=== PATIENT | male | born 1945 | race Two or more races ===

== ENCOUNTER 2016-09-03 19:13 | Inpatient (IN) | payer MEDICARE, MEDICAID ==
[~2016-09-03] VITALS: Ht 180.3 cm; Wt 83.9 kg
--- NOTE | 2016-09-03 19:13 | NUR ---
[facility] ER [facility]. PT ARRIVED ON 5150 GRAVELY DISABLED. NO IMMEDIATE SIGNS OF DISTRESS NOTED. PT AMBULATORY WITH STEADY GAIT. PT CALM AND COOPERATIVE UPON ARRIVAL. PT A/OX2 . PT TO ER BED.
[2016-09-03 19:48] LABS: BASOPHILS % (AUTO) 0.5 % (0.0-2.0); EOSINOPHILS # (AUTO) 0.2 /CMM (0.0-0.7); EOSINOPHILS % (AUTO) 3.7 % (0.0-6.0); HEMATOCRIT 46 % (39-51); HEMOGLOBIN 15.3 g/dL (13.5-17.5); LYMPHOCYTES # (AUTO) 1.8 /CMM (0.8-4.8); LYMPHOCYTES % (AUTO) 27.5 % (20.0-44.0); MEAN CORPUSCULAR HEMOGLOBIN 31 PG (26.0-33.0); MEAN CORPUSCULAR HGB CONC 33 g/dl (31.0-36.0); MEAN CORPUSCULAR VOLUME 91 fL (80-96); MONOCYTES # (AUTO) 0.7 /CMM (0.1-1.30); MONOCYTES % (AUTO) 10.9 % (2.0-12.0); NEUTROPHILS % (AUTO) 57.4 % (43.0-81.0); PLATELET COUNT (AUTO) 191 /CMM (150-450); RDW COEFFICIENT OF VARIATION 12.8 (11.5-15.0); RED BLOOD CELL COUNT(AUTO) 5.03 MIL/uL (4.5-6.0); WHITE BLOOD COUNT (AUTO) 6.7 K/uL (4.3-11.0)
[2016-09-03] MEDS ORDERED: CYAN10009 PO (19:57)
[2016-09-03] MEDS ORDERED: METO25TA6 PO (19:57)
[2016-09-03] MEDS ORDERED: THIA100T70 PO (19:57)
[2016-09-03] MEDS ORDERED: CHOL100034 PO (19:57)
[2016-09-03] MEDS ORDERED: MULT1TAB73 PO (19:57)
[2016-09-03 20:04] LABS: ALANINE AMINOTRANSFERASE 14 U/L (12-78); ALBUMIN 3.3 g/dL (3.4-5.0); ALKALINE PHOSPHATASE 82 U/L (46-116); ASPARTATE AMINOTRANSFERASE 21 U/L (15-37); BILIRUBIN,DIRECT 0.1 mg/dL (0.0-0.2); BILIRUBIN,TOTAL 0.4 mg/dL (0.2-1.0); CALCIUM, SERUM 8.6 mg/dL (8.5-10.1); CARBON DIOXIDE 26 mmol/L (21-32); CHLORIDE 105 mmol/L (98-107); CREATININE 1.3 mg/dL (0.6-1.3); GFR 55 mL/min (>60); GLUCOSE 104 mg/dL (74-106); POTASSIUM 4.6 mmol/L (3.5-5.1); SODIUM SERUM 139 mmol/L (136-145); UREA NITROGEN, BLOOD 20 mg/dL (7-18)
[2016-09-03 20:07] LABS: ACETAMINOPHEN < 2 ug/ml (10-30); ALCOHOL, BLOOD < 3 mg/dL (0-0); SALICYLATE < 2.8 mg/dL (2.8-20.0)
[2016-09-03] MEDS ORDERED: FAMO20TA8 PO (20:08)
[2016-09-03] MEDS ORDERED: ATOR20TA PO (20:08)
[2016-09-03] MEDS ORDERED: TRAZ-144 PO (20:08)
[2016-09-03] MEDS ORDERED: ACAM333T8 PO (20:08)
[2016-09-03] MEDS ORDERED: RISP0.2515 PO (20:08)
[2016-09-03] MEDS ORDERED: CITA10TA9 PO (20:08)
[2016-09-03] MEDS ORDERED: DONE10TA44 PO (20:08)
[2016-09-03] MEDS ORDERED: LISI2.5T2 PO (20:08)
[2016-09-03] MEDS ORDERED: FOLI1TAB16 PO (20:08)
[2016-09-03] MEDS ORDERED: LORA0.5T PO (20:08)
[2016-09-03] MEDS ORDERED: DIVA500T54 PO (20:08)
--- NOTE | 2016-09-03 20:23 | NUR ---
REPORT GIVEN TO SHAY ROSE FOR CONTINUATION OF CARE.
--- NOTE | 2016-09-03 20:51 | NUR ---
PT TO [facility]IA [facility].
--- NOTE | 2016-09-03 21:15 | NUR ---
ADMITTED NOTES THIS 70Y/O MALE ADMITTED FROM [facility] ER.INITIALLY CAME FROM [facility], PT. IS ON 5150 HOLD FOR GD PER HOLD ,PT VERBAL AGGRESSIVE ,AGITATED STRIKING OUT AT STAFF , UPON FACE TO FACE EVALUATION , PT IS A/0 X ,3, PT ANXIOUS AGGRESSIVE, SKIN ASSESSMENT DONE SKIN IS CLAER AND INTACT,PT. MENTAL HX OF PSYCHOSIS , MEDICAL HX OF HTN, HYPERLIPIDEMIA, GERD , CONTRABAND CHECK DONE, SAFE ENVIRONMENT PROVIDED , BOTH MD AWARE OF NEW ADMISSION AND MEDICATION, NEW ORDERS RECEIVED AND CARRIED OUT, CALLED FAMILY MEMBER UNABLE TO TALK TO FAMILY AND LEFT MESSAGE FOR FAMILY. PT. REORIENT TO UNIT AND ENCOURAGE PT TO BE VERBALIZE FEELING AND CONCERN TO STAFF, WILL CONTINUE TO MONITOR FOR SAFETY AND BEHAVIOR .
[2016-09-03] MEDS ORDERED: MAGNESIUM HYDROXIDE 30 ML UDC PO PRN (21:30)
[2016-09-03] MEDS ORDERED: LORAZEPAM 0.5 MG TABLET PO PRN (21:30)
[2016-09-03] MEDS ORDERED: MAG HYDROX/AL HYDROX/SIMETH 30 ML UDC PO PRN (21:30)
[2016-09-03] MEDS ORDERED: ACETAMINOPHEN 325 MG TABLET PO PRN (21:30)
[2016-09-03] MEDS ORDERED: LORAZEPAM 0.5 MG TABLET ONE (21:39)
[2016-09-03] MEDS ORDERED: ACETAMINOPHEN 325 MG TABLET ONE (21:40)
--- NOTE | 2016-09-03 22:04 | NUR ---
PT. C/O ANXIETY ATIVAN 0.5 MG PO PRN GIVEN PO WILL CONTINUE TO MONITOR
[2016-09-03] MEDS ORDERED: METOPROLOL TARTRATE 25 MG TABLET ONE (22:20)
[2016-09-03] MEDS: METOPROLOL TARTRATE 25 MG TABLET PO SCH (22:27)
[2016-09-03 23:55] VITALS: BP 140/85
[2016-09-04] MEDS ORDERED: DIVALPROEX SODIUM 500 MG TABLET.DR PO SCH ×2 (09:00)
[2016-09-04 09:30] LABS: CREATININE 1.2 mg/dL (0.6-1.3)
[2016-09-04] MEDS: FAMOTIDINE (20 MG) 20 MG TABLET PO SCH ×2 (10:45→18:07)
[2016-09-04] MEDS: MULTIVITAMINS,THERAPEUTIC 1 UDTAB TABLET PO SCH (10:45)
[2016-09-04] MEDS: ATORVASTATIN 10 MG TABLET PO SCH (10:45)
[2016-09-04] MEDS: THIAMINE HCL 100 MG TABLET PO SCH (10:45)
[2016-09-04] MEDS: CYANOCOBALAMIN 500 MCG TABLET PO SCH (10:45)
[2016-09-04] MEDS: METOPROLOL TARTRATE 25 MG TABLET PO SCH ×2 (10:46→21:36)
[2016-09-04] MEDS: CHOLECALCIFEROL 1,000 UNIT TABLET (VIT D3) PO SCH (10:47)
[2016-09-04] MEDS: LISINOPRIL (5MG) 5 MG TABLET PO SCH (10:47)
[2016-09-04] MEDS: FOLIC ACID 1 MG TABLET PO SCH (10:47)
--- NOTE | 2016-09-04 14:31 | NUR ---
Initial DC Plan: Patient resides at [facility] ([address] [place] [address] ). SW attempted to call [facility] several times but there was no answer and phone kept ringing. SW attempted to contact the patient's dtr Leydi Nicholson ([phone]) but was unsuccessful and left a message with contact information. SW will help form a safe and proper discharge.
[2016-09-04 17:31] VITALS: BP 149/81
[2016-09-04 17:32] VITALS: BP 126/70
[2016-09-04 20:08] VITALS: BP 165/85
--- NOTE | 2016-09-04 20:10 | NUR ---
GPS RN NOTE: NEW ORDER RECEIVED FROM DR. DEL CID OF DE[facility] 500MG [id number] NOTED AND CARRIED OUT.
[2016-09-04] MEDS: DONEPEZIL 5 MG TABLET PO SCH (21:35)
[2016-09-04] MEDS: DIVALPROEX SODIUM 500 MG TABLET.DR PO SCH (21:35)
[2016-09-04] MEDS: TEMAZEPAM 7.5 MG CAPSULE PO PRN (22:56)
[2016-09-05 07:29] LABS: BASOPHILS % (AUTO) 0.4 % (0.0-2.0); EOSINOPHILS # (AUTO) 0.2 /CMM (0.0-0.7); EOSINOPHILS % (AUTO) 3.6 % (0.0-6.0); HEMATOCRIT 47 % (39-51); HEMOGLOBIN 15.9 g/dL (13.5-17.5); LYMPHOCYTES # (AUTO) 1.6 /CMM (0.8-4.8); LYMPHOCYTES % (AUTO) 29.3 % (20.0-44.0); MEAN CORPUSCULAR HEMOGLOBIN 31 PG (26.0-33.0); MEAN CORPUSCULAR HGB CONC 34 g/dl (31.0-36.0); MEAN CORPUSCULAR VOLUME 90 fL (80-96); MONOCYTES # (AUTO) 0.5 /CMM (0.1-1.30); MONOCYTES % (AUTO) 9.2 % (2.0-12.0); NEUTROPHILS # (AUTO) 3.1 /CMM (1.8-8.9); NEUTROPHILS % (AUTO) 57.5 % (43.0-81.0); PLATELET COUNT (AUTO) 166 /CMM (150-450); RDW COEFFICIENT OF VARIATION 13.4 (11.5-15.0); RED BLOOD CELL COUNT(AUTO) 5.18 MIL/uL (4.5-6.0); WHITE BLOOD COUNT (AUTO) 5.3 K/uL (4.3-11.0)
[2016-09-05 07:51] LABS: ALBUMIN 3.3 g/dL (3.4-5.0); BILIRUBIN,TOTAL 0.5 mg/dL (0.2-1.0); CALCIUM, SERUM 8.7 mg/dL (8.5-10.1); CREATININE 1.1 mg/dL (0.6-1.3); POTASSIUM 4.2 mmol/L (3.5-5.1); TOTAL PROTEIN, SERUM 6.9 g/dL (6.4-8.2)
[2016-09-05 08:00] VITALS: BP 160/90
[2016-09-05] MEDS: CHOLECALCIFEROL 1,000 UNIT TABLET (VIT D3) PO SCH (08:09)
[2016-09-05] MEDS: MULTIVITAMINS,THERAPEUTIC 1 UDTAB TABLET PO SCH (08:09)
[2016-09-05] MEDS: FOLIC ACID 1 MG TABLET PO SCH (08:10)
[2016-09-05] MEDS: DIVALPROEX SODIUM 500 MG TABLET.DR PO SCH ×2 (08:10→20:09)
[2016-09-05] MEDS: THIAMINE HCL 100 MG TABLET PO SCH (08:10)
[2016-09-05] MEDS: ATORVASTATIN 10 MG TABLET PO SCH (08:10)
[2016-09-05] MEDS: FAMOTIDINE (20 MG) 20 MG TABLET PO SCH ×2 (08:10→16:29)
[2016-09-05] MEDS: METOPROLOL TARTRATE 25 MG TABLET PO SCH ×2 (08:11→20:23)
[2016-09-05] MEDS: LISINOPRIL (5MG) 5 MG TABLET PO SCH (08:11)
[2016-09-05] MEDS: CYANOCOBALAMIN 500 MCG TABLET PO SCH (08:14)
[2016-09-05 11:05] LABS: THYROID STIMULATING HORMONE 2.761 uIU/mL (0.358-3.74)
--- NOTE | 2016-09-05 14:57 | NUR ---
SW spoke with Merary from [facility] ([address] [place] [address] ) and pt. able to return back to the facility.
[2016-09-05 16:00] VITALS: BP 136/77
[2016-09-05 20:00] VITALS: BP 133/94
[2016-09-05] MEDS: DONEPEZIL 5 MG TABLET PO SCH (21:11)
[2016-09-05] MEDS: TEMAZEPAM 7.5 MG CAPSULE PO PRN (22:23)
[2016-09-06 08:00] VITALS: BP 138/82
[2016-09-06] MEDS: LISINOPRIL (5MG) 5 MG TABLET PO SCH (08:23)
[2016-09-06] MEDS: THIAMINE HCL 100 MG TABLET PO SCH (08:23)
[2016-09-06] MEDS: FAMOTIDINE (20 MG) 20 MG TABLET PO SCH ×2 (08:23→16:16)
[2016-09-06] MEDS: CHOLECALCIFEROL 1,000 UNIT TABLET (VIT D3) PO SCH (08:23)
[2016-09-06] MEDS: METOPROLOL TARTRATE 25 MG TABLET PO SCH ×2 (08:23→20:21)
[2016-09-06] MEDS: ATORVASTATIN 10 MG TABLET PO SCH (08:23)
[2016-09-06] MEDS: MULTIVITAMINS,THERAPEUTIC 1 UDTAB TABLET PO SCH (08:24)
[2016-09-06] MEDS: DIVALPROEX SODIUM 500 MG TABLET.DR PO SCH ×2 (08:24→20:20)
[2016-09-06] MEDS: FOLIC ACID 1 MG TABLET PO SCH (08:24)
[2016-09-06] MEDS: CYANOCOBALAMIN 500 MCG TABLET PO SCH (08:24)
[2016-09-06 16:00] VITALS: BP 148/89
[2016-09-06 20:00] VITALS: BP 137/75
[2016-09-06 20:18] VITALS: BP 137/75
[2016-09-06] MEDS: DONEPEZIL 5 MG TABLET PO SCH (21:14)
[2016-09-07 08:00] VITALS: BP 123/78
[2016-09-07] MEDS: METOPROLOL TARTRATE 25 MG TABLET PO SCH ×2 (09:00→20:41)
[2016-09-07] MEDS: FAMOTIDINE (20 MG) 20 MG TABLET PO SCH ×2 (09:05→16:42)
[2016-09-07] MEDS: THIAMINE HCL 100 MG TABLET PO SCH (09:05)
[2016-09-07] MEDS: FOLIC ACID 1 MG TABLET PO SCH (09:06)
[2016-09-07] MEDS: ATORVASTATIN 10 MG TABLET PO SCH (09:06)
[2016-09-07] MEDS: DIVALPROEX SODIUM 500 MG TABLET.DR PO SCH ×2 (09:06→20:41)
[2016-09-07] MEDS: CYANOCOBALAMIN 500 MCG TABLET PO SCH (09:06)
[2016-09-07] MEDS: CHOLECALCIFEROL 1,000 UNIT TABLET (VIT D3) PO SCH (09:08)
[2016-09-07] MEDS: LISINOPRIL (5MG) 5 MG TABLET PO SCH (09:08)
[2016-09-07] MEDS: MULTIVITAMINS,THERAPEUTIC 1 UDTAB TABLET PO SCH (09:08)
[2016-09-07 16:00] VITALS: BP 126/81
[2016-09-07 20:00] VITALS: BP 139/86
[2016-09-07] MEDS: DONEPEZIL 5 MG TABLET PO SCH (21:02)
[2016-09-07] MEDS: TEMAZEPAM 7.5 MG CAPSULE PO PRN (21:50)
[2016-09-08 07:01] LABS: BASOPHILS % (AUTO) 0.4 % (0.0-2.0); EOSINOPHILS # (AUTO) 0.2 /CMM (0.0-0.7); EOSINOPHILS % (AUTO) 4.4 % (0.0-6.0); HEMATOCRIT 45 % (39-51); HEMOGLOBIN 15.1 g/dL (13.5-17.5); LYMPHOCYTES # (AUTO) 1.4 /CMM (0.8-4.8); LYMPHOCYTES % (AUTO) 28.7 % (20.0-44.0); MEAN CORPUSCULAR HEMOGLOBIN 31 PG (26.0-33.0); MEAN CORPUSCULAR HGB CONC 34 g/dl (31.0-36.0); MEAN CORPUSCULAR VOLUME 91 fL (80-96); MONOCYTES # (AUTO) 0.4 /CMM (0.1-1.30); MONOCYTES % (AUTO) 8.7 % (2.0-12.0); NEUTROPHILS # (AUTO) 2.8 /CMM (1.8-8.9); NEUTROPHILS % (AUTO) 57.8 % (43.0-81.0); PLATELET COUNT (AUTO) 153 /CMM (150-450); RDW COEFFICIENT OF VARIATION 13.5 (11.5-15.0); RED BLOOD CELL COUNT(AUTO) 4.92 MIL/uL (4.5-6.0); WHITE BLOOD COUNT (AUTO) 4.9 K/uL (4.3-11.0)
[2016-09-08 07:21] LABS: BILIRUBIN,TOTAL 0.6 mg/dL (0.2-1.0); CALCIUM, SERUM 8.4 mg/dL (8.5-10.1); CREATININE 1.1 mg/dL (0.6-1.3); TOTAL PROTEIN, SERUM 6.6 g/dL (6.4-8.2)
[2016-09-08] MEDS: FOLIC ACID 1 MG TABLET PO SCH (08:08)
[2016-09-08] MEDS: FAMOTIDINE (20 MG) 20 MG TABLET PO SCH ×2 (08:08→16:40)
[2016-09-08] MEDS: ATORVASTATIN 10 MG TABLET PO SCH (08:08)
[2016-09-08] MEDS: CHOLECALCIFEROL 1,000 UNIT TABLET (VIT D3) PO SCH (08:08)
[2016-09-08] MEDS: THIAMINE HCL 100 MG TABLET PO SCH (08:08)
[2016-09-08] MEDS: MULTIVITAMINS,THERAPEUTIC 1 UDTAB TABLET PO SCH (08:08)
[2016-09-08] MEDS: DIVALPROEX SODIUM 500 MG TABLET.DR PO SCH ×2 (08:08→22:03)
[2016-09-08] MEDS: CYANOCOBALAMIN 500 MCG TABLET PO SCH (08:08)
[2016-09-08] MEDS: METOPROLOL TARTRATE 25 MG TABLET PO SCH ×2 (08:09→22:04)
[2016-09-08] MEDS: LISINOPRIL (5MG) 5 MG TABLET PO SCH (08:09)
[2016-09-08 08:17] VITALS: BP 137/95
[2016-09-08 16:00] VITALS: BP 125/69
[2016-09-08 20:15] VITALS: BP 138/73
[2016-09-08] MEDS: DONEPEZIL 5 MG TABLET PO SCH (22:03)
[2016-09-08] MEDS: TEMAZEPAM 7.5 MG CAPSULE PO PRN (22:04)
--- NOTE | 2016-09-09 01:25 | NUR ---
Pt has been isolative with flat affect & depressed mood but compliant with care.
[2016-09-09 08:00] VITALS: BP 134/79
[2016-09-09] MEDS: DIVALPROEX SODIUM 500 MG TABLET.DR PO SCH ×2 (08:01→21:04)
[2016-09-09] MEDS: MULTIVITAMINS,THERAPEUTIC 1 UDTAB TABLET PO SCH (08:01)
[2016-09-09] MEDS: CHOLECALCIFEROL 1,000 UNIT TABLET (VIT D3) PO SCH (08:01)
[2016-09-09] MEDS: ATORVASTATIN 10 MG TABLET PO SCH (08:02)
[2016-09-09] MEDS: THIAMINE HCL 100 MG TABLET PO SCH (08:02)
[2016-09-09] MEDS: METOPROLOL TARTRATE 25 MG TABLET PO SCH ×2 (08:02→21:05)
[2016-09-09] MEDS: CYANOCOBALAMIN 500 MCG TABLET PO SCH (08:02)
[2016-09-09] MEDS: LISINOPRIL (5MG) 5 MG TABLET PO SCH (08:02)
[2016-09-09] MEDS: FAMOTIDINE (20 MG) 20 MG TABLET PO SCH ×2 (08:02→17:13)
[2016-09-09] MEDS: FOLIC ACID 1 MG TABLET PO SCH (08:02)
[2016-09-09 16:00] VITALS: BP 143/96
--- NOTE | 2016-09-09 19:30 | NUR ---
GPS RN NOTE, RECEIVED PATIENT AWAKE AND IN BED, NO S/S OR COMPLAINTS OF PAIN AT THIS TIME. PATIENT IS DISPLAYING NO S/S OF APPARENT DISTRESS AT THIS TIME. PATIENT BREATHING IS UNLABORED WITH EQUAL RISE AND FALL OF THE CHEST. PATIENT IS ALERT AND ORIENTED X 3 ON ROOM AIR WITH A SPO2 OF 97%. PATIENT IS MED COMPLIANT, DISORGANIZED, CALM, COOPERATIVE, AND NEEDS REORIENTATION. PATIENT DENIES SUICIDE IDEATIONS AND HOMICIDAL IDEATIONS AT THIS TIME. PATIENT ASSISTED WITH TURNING AND REPOSITIONING Q2HR AND PRN FOR COMFORT AND CIRCULATION. PATIENT HAS NO NEEDS AT THIS TIME. PATIENT EDUCATED ON THE USE OF THE CALL NAVA. PATIENT BED SIDE RAILS ARE UP X2 FOR SAFETY, BED IS LOCKED AND LOW WILL CONTINUE TO MONITOR AND MAINTAIN SAFETY.
[2016-09-09 20:00] VITALS: BP 151/93
[2016-09-09 20:09] VITALS: BP 151/93
[2016-09-09] MEDS: DONEPEZIL 5 MG TABLET PO SCH (21:04)
[2016-09-09] MEDS: TEMAZEPAM 7.5 MG CAPSULE PO PRN (22:06)
--- NOTE | 2016-09-09 22:06 | NUR ---
GPS RN NOTE, PATIENT HAS A COMPLAINT OF NOT BEING ABLE TO SLEEP AND FLAVIO LIKE A SLEEPING AID AT THIS TIME. PATIENT VITAL SIGNS ARE STABLE. GAVE RESTORIL 7.5MG PO HS ORDERED. WILL REASSESS FOR INSOMNIA AND I WILL CONTINUE TO MONITOR THIS PATIENT.
[2016-09-10 08:00] VITALS: BP 125/88
[2016-09-10] MEDS: DIVALPROEX SODIUM 500 MG TABLET.DR PO SCH (08:09)
[2016-09-10] MEDS: FOLIC ACID 1 MG TABLET PO SCH (08:09)
[2016-09-10] MEDS: THIAMINE HCL 100 MG TABLET PO SCH (08:09)
[2016-09-10] MEDS: ATORVASTATIN 10 MG TABLET PO SCH (08:09)
[2016-09-10] MEDS: FAMOTIDINE (20 MG) 20 MG TABLET PO SCH (08:09)
[2016-09-10] MEDS: MULTIVITAMINS,THERAPEUTIC 1 UDTAB TABLET PO SCH (08:09)
[2016-09-10] MEDS: CHOLECALCIFEROL 1,000 UNIT TABLET (VIT D3) PO SCH (08:09)
[2016-09-10] MEDS: CYANOCOBALAMIN 500 MCG TABLET PO SCH (08:09)
[2016-09-10 08:10] VITALS: BP 125/78
[2016-09-10] MEDS: LISINOPRIL (5MG) 5 MG TABLET PO SCH (08:10)
[2016-09-10] MEDS: METOPROLOL TARTRATE 25 MG TABLET PO SCH (08:10)
--- NOTE | 2016-09-10 13:20 | NUR ---
GPS/RN PATIENT CLEARED FOR DISCHARGE TO [facility] BY DR DEL CID AND LAWRENCE DAVIDSON. ALL D/C PAPERWORK COMPLETED AND EXPLAINED TO PATIENT, VERBALIZED UNDERSTANDING, MEDICATIONS EXPLAINED TO PATIENT, VERBALIZED UNDERSTANDING. PSYCH MEDICATION CALLED INTO [facility] [address] DEL CID. MEDICAL PRESCRIPTION INCLUDED IN PACKET. PATIENT DENIES SI/HI/AH UPON DISCHARGE, PSYCHIATRIC TREATMENT PLANS MET, LEFT UNIT CALM, COOPERATIVE, STABLE CONDITION WITH EMT AT SIDE.
--- NOTE | 2016-09-10 15:15 | NUR ---
Discharge note: Pt. was discharged back to [facility] ([address] [place] [address] ) via [facility]. Daughter, Leydi Nicholson ([phone])was notified via voicemail. Pt. was calm and agreed with discharge plan. Pt. was referred to AA meetings and scheduled to show to ([facility] on 09/13/16Fri 6:00 PM at [address] [facility] [address] ). Discharge instructions were provided to the patient and discharge paperwork has been signed. Pt. was also provided a referral to the [facility] Address: [address] [place] [address] .
== END 2016-09-10 13:20 | DRG 885 ==
LOC: ER 19:15 → GPS 20:38
PROVIDERS: ADMIT Psychiatry & Neurology Psychosomatic Medicine; ATTEND Internal Medicine
DX: F31.9 Bipolar disorder, unspecified (principal); E03.9 Hypothyroidism, unspecified; E78.5 Hyperlipidemia, unspecified; I10 Essential (primary) hypertension; F10.20 Alcohol dependence, uncomplicated; F39 Unspecified mood [affective] disorder; Z73.6 Limitation of activities due to disability; G31.84 Mild cognitive impairment of uncertain or unknown etiology
CPT/HCPCS: 36415; 80048-TC; 80053-TC; 80061-TC; 80076-TC; 80164-TC; 82565-TC; 84443-TC; 85025-TC; 87081-TC; A4606; G0480; G6039-TC; Z7610